=== PATIENT | female | born 1990 | race Caucasian/White ===

== ENCOUNTER 2017-03-31 07:46 | Emergency (ER) | payer BC, OTHER ==
[2017-03-31 07:57] VITALS: TEMP 97.8; BMI 37.5
[2017-03-31] MEDS ORDERED: ONDANSETRON 4 MG/2 ML VIAL IVPUSH ONE (08:01)
[2017-03-31] MEDS ORDERED: PANTOPRAZOLE SODIUM 40 MG in SODIUM CHLORIDE 100 ML IVPB ONE (08:01)
[2017-03-31] MEDS ORDERED: SODIUM CHLORIDE 1,000 ML IV STA ×2 (08:01→09:41)
[2017-03-31] MEDS ORDERED: PANTOPRAZOLE SODIUM 100 ML IVPB ONE (08:22)
[2017-03-31] MEDS ORDERED: ONDANSETRON 4 MG/2 ML VIAL ONE (08:22)
--- NOTE | 2017-03-31 08:30 | PDOC ---
History of Present Illness - General Chief Complaint: Vomiting/Diarrhea Stated Complaint: Nausea/Vomiting Time Seen by Provider: 03/31/17 08:01 History Source: Patient Exam Limitations: No Limitations - History of Present Illness Travel History: No Initial Comments: 03/31/17 08:11 26-year-old female approximately 24 weeks presents the ED with sudden onset of nausea followed by vomiting and diarrhea. Patient also now complaining of epigastric cramping generalized fatigue, and weakness. 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 Patient states has had a normal and has history of asthma with no clubbing to fever, chills, lower bowel pain, vaginal discharge, dysuria, or vaginal bleeding since onset. Timing/Duration: reports: intermittent Quality: reports: mild, cramping Abdominal Pain Onset Location: reports: epigastric Pain Radiation: reports: no radiation Activities at Onset: reports: none Aggravating Factors: improves with: None Alleviating Factors: improves with: None Past History - Travel Traveled outside of the country in the last 30 days: No Close contact w/someone who was outside of country & ill: No - Past Medical History Allergies/Adverse Reactions: Allergies Allergy/AdvReac Type Severity Reaction Status Date / Time azithromycin [From Zithromax] AdvReac Vomiting Verified 03/31/17 08:01 Home Medications: Ambulatory Orders Levofloxacin [Levaquin] 750 mg PO DAILY #7 tablet 03/07/15 Metronidazole [Flagyl -] 500 mg PO TID #21 tablet 03/07/15 Ondansetron HCl [Zofran] 4 mg PO QID PRN #16 tablet 03/07/15 Oxycodone HCl/Acetaminophen [Percocet 5/325 -] 1 tab PO Q6H PRN #12 tablet 03/07 Asthma: Yes Suicide Attempt (Hx): No - Reproductive History Is Patient Now?: Yes (#): 4 Para: 0 - Psycho/Social/Smoking Cessation Hx Anxiety: No Suicidal Ideation: No Smoking History: Never smoked Have you smoked in the past 12 months: No Information on smoking cessation initiated: No Hx Alcohol Use: No Drug/Substance Use Hx: No Substance Use Type: None Patient Lives Alone: No Lives with/in: spouse/SO Review of Systems - Review of Systems Able to Perform ROS?: Yes Constitutional: Yes: Loss of Appetite, Weakness HEENTM: No: Symptoms Reported Respiratory: No: Symptoms reported Cardiac (ROS): No: Symptoms Reported ABD/GI: Yes: Nausea, Vomiting, Indigestion : No: Symptoms Reported Musculoskeletal: No: Symptoms Reported Integumentary: No: Symptoms Reported Neurological: No: Symptoms reported *Physical Exam - Vital Signs Last Vital Signs Temp Pulse Resp BP Pulse Ox 97.8 F 83 20 121/54 98 03/31/17 07:54 03/31/17 07:54 03/31/17 07:54 03/31/17 07:54 03/31/17 07:54 - Physical Exam General Appearance: Yes: Nourished, Appropriately Dressed. No: Apparent Distress HEENT: positive: TMs Normal, Pharynx Normal. negative: Pale Conjunctivae Neck: positive: Normal Thyroid. negative: Lymphadenopathy (R), Lymphadenopathy (L) Respiratory/Chest: positive: Lungs Clear, Normal Breath Sounds. negative: Respiratory Distress, Accessory Muscle Use Cardiovascular: positive: Regular Rhythm, Regular Rate. negative: Murmur Gastrointestinal/Abdominal: positive: Normal Bowel Sounds, Soft, Tenderness ( epigastric mupper periumbilical). negative: Rebound Integumentary: positive: Normal Color, Warm, Moist Neurologic: positive: Motor Strength 5/5 (ambulatory) ED Treatment Course - LABORATORY CBC & Chemistry Diagram: 03/31/17 08:08 03/31/17 08:08 Medical Decision Making - Medical Decision Making 03/31/17 08:45 Patient here for evaluation of nausea vomiting and diarrhea after eating [place] food at 8 PM last evening. Patient states within hours started to develop nausea followed by vomiting and diarrhea. Patient is currently 24 weeks and on exam had tenderness to the epigastric and upper periumbilical region. Patient had no right upper quadrant tenderness or right lower quadrant tenderness. Patient ordered for labs including CBC, comp, lipase, mag, urinalysis, IV fluids, Zofran and Protonix. Patient also will receive an ultrasound then go upstairs for monitoring since she is 24 weeks . 03/31/17 11:13 Laboratory Tests 03/31/17 03/31/17 08:08 10:28 Lipase 76 Urine Ketones 2+ H Urine Nitrite Negative Ur Leukocyte Esterase Trace Urine WBC 1 Laboratory Tests 03/31/17 03/31/17 08:08 08:08 WBC 12.0 H Hgb 11.4 D Hct 33.9 D Plt Count 305 Neutrophils % 79.2 Sodium 139 Potassium 4.7 D Chloride 110 H Carbon Dioxide 19 L D Anion Gap 10 BUN 7 D Creatinine 0.4 L D Creat Clearance w eGFR > 60 Random Glucose 82 D Calcium 8.3 L Magnesium 2.0 AST 50 H D ALT 14 D Total Protein 6.3 L Albumin 2.6 L D Lipase 76 Patient offered apple juice and will be sent upstairs to labor and delivery for assessment. Case discussed with L&D nurse Grant and accepted patient. Patient is followed by [facility] in [facility] [place] *DC/Admit/Observation/Transfer Diagnosis at time of Disposition: Nausea, vomiting, and diarrhea, 20 or more weeks gestation of - Discharge Dispostion Condition at time of disposition: Improved - Referrals Referrals: Zaheer Sewell [Primary Care Provider] - - Patient Instructions Additional Instructions: May take Zofran as needed for nausea at home. please eat small frequent meals better bland and soft for the next 2 days and advance as tolerated.
[2017-03-31 09:05] LABS: ALBUMIN 2.6 g/dl (3.4-5.0); ANION GAP 10 (8-16); CALCIUM 8.3 mg/dL (8.5-10.1); CO2 19 mmol/L (21-32); GLUCOSE,RANDOM 82 mg/dL (74-106)
[2017-03-31 09:06] LABS: BASOPHIL 0.5 % (0-2.0); EOSINOPHIL 2.4 % (0-4.5); MCH 30.2 pg (25.7-33.7); MCHC 33.7 g/dl (32.0-36.0); MEAN CELL VOLUME 89.5 fl (80-96); MEAN PLT VOLUME 9.1 fl (7.5-11.1); NEUTROPHILS 79.2 % (42.8-82.8)
[2017-03-31 09:10] LABS: ALK PHOS 89 U/L (45-117); BILIRUBIN,TOTAL 0.4 mg/dL (0.2-1.0); CREATININE 0.4 mg/dL (0.55-1.02); SGPT/ALT 14 U/L (12-78); TOT PROT 6.3 g/dl (6.4-8.2)
--- NOTE | 2017-03-31 09:37 | PDOC ---
*Physical Exam - Vital Signs Last Vital Signs Temp Pulse Resp BP Pulse Ox 97.8 F 83 20 121/54 100 03/31/17 07:54 03/31/17 07:54 03/31/17 07:54 03/31/17 07:54 03/31/17 08:15 - Physical Exam Comments: 03/31/17 09:38 GENERAL: Awake, alert, and fully oriented, in no acute distress HEAD: No signs of trauma, normocephalic, atraumatic EYES: PERRLA, EOMI, sclera anicteric, conjunctiva clear ENT: Auricles normal inspection, hearing grossly normal, nares patent, oropharynx clear without exudates. Moist mucosa NECK: Normal ROM, supple, no lymphadenopathy, JVD, or masses LUNGS: No distress, speaks full sentences, clear to auscultation bilaterally HEART: Regular rate and rhythm, normal S1 and S2, no murmurs, rubs or gallops, peripheral pulses normal and equal bilaterally. ABDOMEN: (+) Gravid, mild epigastric tenderness. Soft, normoactive bowel sounds. No guarding, no rebound. No masses. No CVA tenderness. EXTREMITIES: Normal inspection, Normal range of motion, no edema. No clubbing or cyanosis. NEUROLOGICAL: Cranial nerves II through XII intact. Normal speech, normal gait , no focal sensorimotor deficits. Visual tripathi intact. Strength is 5/5 throughout. SKIN: Warm, Dry, normal turgor, no rashes or lesions noted. <Landon Lipscomb - Last Filed: 03/31/17 09:50> - Vital Signs Last Vital Signs Temp Pulse Resp BP Pulse Ox 97.8 F 83 20 121/54 100 03/31/17 07:54 03/31/17 07:54 03/31/17 07:54 03/31/17 07:54 03/31/17 08:15 <Wendi Raphael - Last Filed: 03/31/17 10:16> ED Treatment Course - LABORATORY CBC & Chemistry Diagram: 03/31/17 08:08 03/31/17 08:08 - ADDITIONAL ORDERS Additional order review: Laboratory Results 03/31/17 08:45 Lipase Cancelled 03/31/17 08:08 RBC 3.79 MCV 89.5 MCHC 33.7 RDW 13.0 MPV 9.1 D Neutrophils % 79.2 Lymphocytes % 12.8 D Monocytes % 5.1 Eosinophils % 2.4 D Basophils % 0.5 - Medications Given in the ED: ED Medications Discontinued Medications Generic Name Dose Route Start Last Admin Trade Name Vito PRN Reason Stop Dose Admin Pantoprazole Sodium 40 mg/ 100 mls @ 200 mls/hr 03/31/17 08:01 03/31/17 08:36 Sodium Chloride IVPB 03/31/17 08:30 200 mls/hr ONCE ONE Administration Sodium Chloride 1,000 mls @ 1,000 mls/hr 03/31/17 08:01 03/31/17 08:36 Normal Saline - IV 03/31/17 09:00 1,000 mls/hr ASDIR STA Administration Ondansetron HCl 4 mg 03/31/17 08:01 03/31/17 08:36 Zofran Injection IVPUSH 03/31/17 08:02 4 mg ONCE ONE Administration <Landon Lipscomb - Last Filed: 03/31/17 09:50> - LABORATORY CBC & Chemistry Diagram: 03/31/17 08:08 03/31/17 08:08 - ADDITIONAL ORDERS Additional order review: Laboratory Results 03/31/17 08:45 Lipase Cancelled 03/31/17 08:08 RBC 3.79 MCV 89.5 MCHC 33.7 RDW 13.0 MPV 9.1 D Neutrophils % 79.2 Lymphocytes % 12.8 D Monocytes % 5.1 Eosinophils % 2.4 D Basophils % 0.5 - Medications Given in the ED: ED Medications Discontinued Medications Generic Name Dose Route Start Last Admin Trade Name Vito PRN Reason Stop Dose Admin Pantoprazole Sodium 40 mg/ 100 mls @ 200 mls/hr 03/31/17 08:01 03/31/17 08:36 Sodium Chloride IVPB 03/31/17 08:30 200 mls/hr ONCE ONE Administration Sodium Chloride 1,000 mls @ 1,000 mls/hr 03/31/17 08:01 03/31/17 08:36 Normal Saline - IV 03/31/17 09:00 1,000 mls/hr ASDIR STA Administration Ondansetron HCl 4 mg 03/31/17 08:01 03/31/17 08:36 Zofran Injection IVPUSH 03/31/17 08:02 4 mg ONCE ONE Administration <Wendi Raphael - Last Filed: 03/31/17 10:16> Progress Note - Progress Note Progress Note: 26 year old female, 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 She presents with 2 episodes of nausea and vomit with streaks of hematemesis. She attributes her symptoms to [place] food she ate yesterday. She complains of epigastric and left upper quadrant pain, no fever or chills, no urinary complaints, no loss of fluid of vaginal bleeding. She notes that she still feels the baby moving. She denies any sick contacts. She notes that her abdominal pain as a constant burning sensation without radiation. <Landon Lipscomb - Last Filed: 03/31/17 09:50> Medical Decision Making - Medical Decision Making 03/31/17 09:39 26 year old female, who is 24 weeks , presents with nausea, vomit and epigastric pain, with minimal tenderness on exam. Differential - Viral gastritis - Dehydration - Rebecca alvarez - Food poisoning - Diabetes - UTI Plan - IV hydration - Zofran - Bedside evaluation for well being. - Reassessment <Landon Lipscomb - Last Filed: 03/31/17 09:50> - Medical Decision Making 03/31/17 10:15 bedside focused ED ultrasound transabdominal OB performed to evaluate well being findings: heart rate 147 bpm, motion noted. impression: normal FHR. <Wendi Raphael - Last Filed: 03/31/17 10:16> *DC/Admit/Observation/Transfer <Landon Lipscomb - Last Filed: 03/31/17 09:50> <Wendi Raphael - Last Filed: 03/31/17 10:16> Diagnosis at time of Disposition: - Referrals Referrals: Zaheer Sewell [Primary Care Provider] -
[2017-03-31 10:05] LABS: PLATELET COUNT 305 K/MM3 (134-434)
[2017-03-31 10:06] LABS: PLATELET ESTIMATE ADEQUATE (NORMAL)
[2017-03-31 10:13] LABS: SGOT/AST 50 U/L (15-37)
[2017-03-31 10:41] LABS: URINE APPEARANCE CLEAR; URINE BILIRUBIN NEGATIVE (NEGATIVE); URINE BLOOD NEGATIVE (NEGATIVE); URINE COLOR YELLOW; URINE GLUCOSE (UA) NEGATIVE (NEGATIVE); URINE KETONE 2+ (NEGATIVE); URINE LEUK ESTERASE TRACE (NEGATIVE); URINE NITRITE NEGATIVE (NEGATIVE); URINE PROTEIN NEGATIVE (NEGATIVE); URINE UROBILINOGEN NEGATIVE mg/dL (0.2-1.0)
[2017-03-31 10:55] LABS: URINE BACTERIA RARE /hpf (NONE SEEN); URINE MUCUS MODERATE; URINE RBC 1 /hpf (0-3); URINE WBC 1 /hpf (3-5)
[2017-03-31 12:06] VITALS: BP 123/60; PULSE 80
== END 2017-03-31 12:49 | disposition home or self-care (01) ==
LOC: JER 07:46
PROC: 3E0337Z Introduction of Electrolytic and Water Balance Substance into Peripheral Vein, Percutaneous Approach (ICD-10-PCS; principal; 2017-03-31)
PROC: 3E033GC Introduction of Other Therapeutic Substance into Peripheral Vein, Percutaneous Approach (ICD-10-PCS; 2017-03-31)
PROC: 3E033GC Introduction of Other Therapeutic Substance into Peripheral Vein, Percutaneous Approach (ICD-10-PCS; 2017-03-31)
DX: O26.892 Other specified pregnancy related conditions, second trimester (principal); R11.2 Nausea with vomiting, unspecified; Z3A.24 24 weeks gestation of pregnancy
CPT/HCPCS: 36415; 80053; 81003; 81015; 83690; 83735; 85025; 87086; 96361; 96365; 96375; 99283-25

== ENCOUNTER 2018-03-16 11:15 | Emergency (ER) | payer OTHER ==
[2018-03-16 11:22] VITALS: BP 135/72; PULSE 88; TEMP 98.9; BMI 38.9
[2018-03-16] MEDS ORDERED: LIDOCAINE HCL 1%, 10 MG/ML (50 mL VIAL) SQ ONE ×2 (12:09→12:22)
--- NOTE | 2018-03-16 12:09 | PDOC ---
History of Present Illness - General Chief Complaint: Abscess Boil Stated Complaint: ABSCESS Time Seen by Provider: 03/16/18 11:28 - History of Present Illness Initial Comments: 27-year-old female with past medical history significant for asthma presents for evaluation of a painful swollen area under her right axilla 2 days. She denies any associated symptoms besides localized pain. 03/16/18 12:03 Past History - Past Medical History Allergies/Adverse Reactions: Allergies Allergy/AdvReac Type Severity Reaction Status Date / Time azithromycin [From Zithromax] AdvReac Vomiting Verified 03/16/18 11:19 Home Medications: Ambulatory Orders Cephalexin [Keflex] 500 mg PO QID #40 capsule 03/16/18 Ibuprofen [Motrin -] 600 mg PO TID #30 tablet 03/16/18 Sulfamethoxazole/Trimethoprim [Bactrim Ds -] 1 tab PO BID #14 tablet 03/16/18 Asthma: Yes COPD: No Other medical history: DENIES. - Reproductive History (#): 4 Para: 0 - Suicide/Smoking/Psychosocial Hx Smoking History: Never smoked Have you smoked in the past 12 months: No Hx Alcohol Use: No Drug/Substance Use Hx: No Substance Use Type: None Review of Systems - Review of Systems Musculoskeletal: Yes: See HPI Hematologic/Lymphatic: Yes: See HPI All Other Systems: Reviewed and Negative *Physical Exam - Vital Signs Last Vital Signs Temp Pulse Resp BP Pulse Ox 98.9 F 88 17 135/72 100 03/16/18 11:19 03/16/18 11:19 03/16/18 11:19 03/16/18 11:19 03/16/18 11:19 - Physical Exam Comments: There is ear thymic warm tender indurated fluctuant area under the right axilla about 3 cm in length otherwise normal surrounding skin color and temperature. There are no gross sensorimotor deficits in the right upper extremity 03/16/18 12:05 Medical Decision Making - Medical Decision Making Right axilla abscess which I will I&D 03/16/18 12:05 03/16/18 12:36 The area of the abscess was sterilely prepped and aseptically injected with 20 mL of 1% lidocaine without epinephrine. After anesthesia a 1 cm incision was performed at the most fluctuant area purulence was deloculated culture was taken quarter inch iodoform packing was placed and a dry sterile dressing was placed on top of that. This was tolerated well. There were no complications. 03/16/18 12:37 *DC/Admit/Observation/Transfer Diagnosis at time of Disposition: Abscess - Discharge Dispostion Disposition: HOME Condition at time of disposition: Stable Decision to Admit order: No - Prescriptions Prescriptions: Cephalexin [Keflex] 500 mg PO QID #40 capsule Ibuprofen [Motrin -] 600 mg PO TID #30 tablet Sulfamethoxazole/Trimethoprim [Bactrim Ds -] 1 tab PO BID #14 tablet - Referrals - Patient Instructions Printed Discharge Instructions: DI for Incision and Drainage of a Skin Abscess Additional Instructions: Return to the emergency room should symptoms worsen or he develops fever chills or night sweats. Please follow-up in the ER in 2 days for packing removal and wound check. Take all the antibiotics as directed. I've also given you a prescription for a pain medication which should help your discomfort. Keep the area clean and dry for 48 hours do not remove the bandage. Do not take a shower. - Post Discharge Activity Forms/Work/School Notes: Back to Work
[2018-03-16] MEDS ORDERED: LIDOCAINE HCL 1%, 10 MG/ML (20ML VIAL) ONE (12:22)
== END 2018-03-16 13:01 | disposition home or self-care (01) ==
LOC: JERFT 11:15
PROC: 0J9D0ZZ Drainage of Right Upper Arm Subcutaneous Tissue and Fascia, Open Approach (ICD-10-PCS; principal; 2018-03-16)
PROC: 0X940ZZ Drainage of Right Axilla, Open Approach (ICD-10-PCS; 2018-03-16)
DX: L02.411 Cutaneous abscess of right axilla (principal)
CPT/HCPCS: 10060; 87070; 87186; 87205; 99282-25

== ENCOUNTER 2018-03-18 14:17 | Emergency (ER) | payer OTHER ==
[2018-03-18 14:24] VITALS: BP 122/73; PULSE 92; TEMP 98.7; BMI 38.9
--- NOTE | 2018-03-18 14:44 | PDOC ---
History of Present Illness - General Chief Complaint: Revisit,Wound Recheck Stated Complaint: ABSCESS - History of Present Illness Initial Comments: 27-year-old female presents for reevaluation after I&D of abscess under right axilla she's feeling well with some localized tenderness. She has no symptoms. 03/18/18 14:42 Past History - Past Medical History Allergies/Adverse Reactions: Allergies Allergy/AdvReac Type Severity Reaction Status Date / Time azithromycin [From Zithromax] AdvReac Vomiting Verified 03/18/18 14:24 Home Medications: Ambulatory Orders Cephalexin [Keflex] 500 mg PO QID #40 capsule 03/16/18 Ibuprofen [Motrin -] 600 mg PO TID #30 tablet 03/16/18 Sulfamethoxazole/Trimethoprim [Bactrim Ds -] 1 tab PO BID #14 tablet 03/16/18 Asthma: Yes COPD: No - Reproductive History (#): 4 Para: 0 - Suicide/Smoking/Psychosocial Hx Smoking History: Never smoked Have you smoked in the past 12 months: No Information on smoking cessation initiated: No Hx Alcohol Use: No Drug/Substance Use Hx: No Substance Use Type: None Review of Systems - Review of Systems Integumentary: Yes: See HPI All Other Systems: Reviewed and Negative *Physical Exam - Vital Signs Last Vital Signs Temp Pulse Resp BP Pulse Ox 98.7 F 92 H 18 122/73 99 03/18/18 14:21 03/18/18 14:21 03/18/18 14:21 03/18/18 14:21 03/18/18 14:21 - Physical Exam Comments: The dressing was removed from the axilla the packing was removed. There is localized ecchymosis around the area of the abscess induration is less there is no purulence or any areas individualized incision that need to be debrided. A sterile wet to dry dressing was placed. 03/18/18 14:43 Medical Decision Making - Medical Decision Making Wet-to-dry dressing changes twice daily I will see her again in 2 days for a recheck. 03/18/18 14:43 *DC/Admit/Observation/Transfer Diagnosis at time of Disposition: Abscess packing removal - Discharge Dispostion Disposition: HOME Condition at time of disposition: Stable Decision to Admit order: No - Referrals Referrals: Zaheer Sewell [Primary Care Provider] - - Patient Instructions Additional Instructions: Continue with wet-to-dry dressing changes twice daily. Return to the emergency room should he develop fever chills or night sweats. Continue taking the antibiotics as directed. I will see you in 2 days for reevaluation of the wound. - Post Discharge Activity
== END 2018-03-18 14:47 | disposition home or self-care (01) ==
LOC: JERFT 14:17
DX: Z48.817 Encounter for surgical aftercare following surgery on the skin and subcutaneous tissue (principal); Z48.01 Encounter for change or removal of surgical wound dressing
CPT/HCPCS: 99281-25

== ENCOUNTER 2018-03-22 11:08 | Emergency (ER) | payer OTHER ==
[2018-03-22 11:17] VITALS: BP 137/75; PULSE 78; TEMP 97.8; BMI 38.9
--- NOTE | 2018-03-22 11:39 | PDOC ---
History of Present Illness - General Chief Complaint: Revisit,Wound Recheck Stated Complaint: REVISIT, FOLLOW UP Time Seen by Provider: 03/22/18 11:29 History Source: Patient Exam Limitations: No Limitations - History of Present Illness Initial Comments: 03/22/18 11:36 27-year-old female presents to the emergency room for evaluation of wound to her right axilla which was drained 2 days ago. Patient was placed on Bactrim and was told to return in 48 hours. Patient denies fever chills or excessive drainage. Patient also denies any increasing swelling erythema or increased warmth. Patient with no medical history to date. Timing/Duration: other Associated Symptoms: reports: denies symptoms Past History - Past Medical History Allergies/Adverse Reactions: Allergies Allergy/AdvReac Type Severity Reaction Status Date / Time azithromycin [From Zithromax] AdvReac Vomiting Verified 03/22/18 11:14 Home Medications: Ambulatory Orders Cephalexin [Keflex] 500 mg PO QID #40 capsule 03/16/18 Ibuprofen [Motrin -] 600 mg PO TID #30 tablet 03/16/18 Sulfamethoxazole/Trimethoprim [Bactrim Ds -] 1 tab PO BID #14 tablet 03/16/18 Asthma: Yes COPD: No - Reproductive History (#): 4 Para: 0 - Suicide/Smoking/Psychosocial Hx Smoking History: Never smoked Have you smoked in the past 12 months: No Information on smoking cessation initiated: No Hx Alcohol Use: No Drug/Substance Use Hx: No Substance Use Type: None Patient Lives Alone: No Lives with/in: spouse/SO Review of Systems - Review of Systems Able to Perform ROS?: No Constitutional: No: Symptoms Reported HEENTM: No: Symptoms Reported Respiratory: No: Symptoms reported Musculoskeletal: No: Symptoms Reported Integumentary: No: Symptoms Reported Neurological: No: Symptoms reported *Physical Exam - Vital Signs Last Vital Signs Temp Pulse Resp BP Pulse Ox 97.8 F 78 18 137/75 98 03/22/18 11:15 03/22/18 11:15 03/22/18 11:15 03/22/18 11:15 03/22/18 11:15 - Physical Exam General Appearance: Yes: Nourished, Appropriately Dressed. No: Apparent Distress Integumentary: positive: Other (noted 1 cm linear wound to the right axilla. No tenderness, increased warmth, or fluctuance. noted 2 cm firm circular area below the incision) Neurologic: positive: Motor Strength 5/5 (ambulatory) Medical Decision Making - Medical Decision Making 03/22/18 11:38 Patient here for wound check. Patient had dressing changed and was told to use paper tape as she had mild irritation secondary to adhesive from tape. 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 *DC/Admit/Observation/Transfer Diagnosis at time of Disposition: Wound check, abscess - Discharge Dispostion Disposition: HOME Condition at time of disposition: Good - Referrals - Patient Instructions Printed Discharge Instructions: How to Care for a Surgical Wound Additional Instructions: Continue taking antibiotics and change dressing twice a day for the next 3 days. Please use paper tape to decrease irritation. - Post Discharge Activity
== END 2018-03-22 11:48 | disposition home or self-care (01) ==
LOC: JERFT 11:08
DX: Z48.817 Encounter for surgical aftercare following surgery on the skin and subcutaneous tissue (principal); L02.411 Cutaneous abscess of right axilla
CPT/HCPCS: 99281-25

== ENCOUNTER 2021-05-25 02:40 | Emergency (ER) | payer BC, OTHER ==
[2021-05-25] MEDS ORDERED: FAMOTIDINE 20 MG/50 ML IVPB 20 MG/50 ML MG IVPB ONE ×2 (02:56→03:18)
[2021-05-25] MEDS ORDERED: SODIUM CHLORIDE 1,000 ML IV STA (02:56)
[2021-05-25 02:57] VITALS: BMI 32.9
[2021-05-25] MEDS ORDERED: ACETAMINOPHEN 1000 MG/100 ML VIAL (NON FORMULARY) IVPB ONE (03:36)
[2021-05-25 03:54] LABS: HEMATOCRIT 38.8 % (32.4-45.2); HEMOGLOBIN 13.5 GM/dL (10.7-15.3); MCH 31.1 pg (25.7-33.7); MCHC 34.8 g/dl (32.0-36.0); MEAN CELL VOLUME 89.3 fl (80-96); MEAN PLT VOLUME 7.9 fl (7.5-11.1); PLATELET COUNT 363 10^3/uL (134-434); RBC 4.34 M/mm3 (3.60-5.2); RDW 12.9 % (11.6-15.6); WHITE BLOOD COUNT 10.5 K/mm3 (4.0-10.0)
[2021-05-25 03:57] LABS: PH,URINE 5.5 (5.0-8.0); URINE APPEARANCE CLOUDY; URINE BILIRUBIN NEGATIVE (NEGATIVE); URINE COLOR YELLOW; URINE GLUCOSE (UA) NEGATIVE (NEGATIVE); URINE KETONE TRACE (NEGATIVE); URINE LEUK ESTERASE NEGATIVE (NEGATIVE); URINE NITRITE NEGATIVE (NEGATIVE); URINE PROTEIN NEGATIVE (NEGATIVE); URINE UROBILINOGEN 0.2 mg/dL (0.2-1.0)
[2021-05-25] MEDS ORDERED: ACETAMINOPHEN INJECTION 100 ML IVPB ONE (04:00)
[2021-05-25 04:14] LABS: CALCIUM 8.7 mg/dL (8.5-10.1)
[2021-05-25 04:15] LABS: ALBUMIN 3.5 g/dl (3.4-5.0); BLOOD UREA NITROGEN 11.7 mg/dL (7-18)
[2021-05-25 04:18] LABS: CREATININE 0.7 mg/dL (0.55-1.3)
[2021-05-25 04:20] LABS: BILIRUBIN,TOTAL 0.4 mg/dL (0.2-1); TOT PROT 7.1 g/dl (6.4-8.2)
[2021-05-25 08:55] VITALS: BP 128/87; PULSE 83; TEMP 98.8
== END 2021-05-25 09:05 | disposition home or self-care (01) ==
LOC: JER 02:40
PROC: 3E033NZ Introduction of Analgesics, Hypnotics, Sedatives into Peripheral Vein, Percutaneous Approach (ICD-10-PCS; principal; 2021-05-25)
PROC: 3E033GC Introduction of Other Therapeutic Substance into Peripheral Vein, Percutaneous Approach (ICD-10-PCS; 2021-05-25)
PROC: 3E0337Z Introduction of Electrolytic and Water Balance Substance into Peripheral Vein, Percutaneous Approach (ICD-10-PCS; 2021-05-25)
DX: R11.2 Nausea with vomiting, unspecified (principal); Z98.84 Bariatric surgery status
CPT/HCPCS: 36415; 74177-TC; 80053; 81003; 84703; 85027; 87086; 93005; 93010; 99285-25; J0131

== ENCOUNTER 2021-06-15 02:00 | Emergency (ER) | payer BC ==
[2021-06-15] MEDS ORDERED: ACETAMINOPHEN INJECTION 100 ML IVPB ONE (02:03)
[2021-06-15] MEDS ORDERED: ACETAMINOPHEN 1000 MG/100 ML VIAL (NON FORMULARY) IVPB ONE (02:07)
[2021-06-15 02:18] VITALS: BMI 33.8
[2021-06-15 02:33] LABS: BASO % 1.1 % (0-2.0); EOS % 3.8 % (0-4.5); HEMATOCRIT 40.5 % (32.4-45.2); HEMOGLOBIN 13.7 GM/dL (10.7-15.3); MCH 30.5 pg (25.7-33.7); MCHC 33.8 g/dl (32.0-36.0); MEAN CELL VOLUME 90.4 fl (80-96); MEAN PLT VOLUME 7.7 fl (7.5-11.1); MONO % 7.6 % (3.8-10.2); NEUT % 55.5 % (42.8-82.8); PLATELET COUNT 479 10^3/uL (134-434); RBC 4.48 M/mm3 (3.60-5.2); RDW 12.7 % (11.6-15.6); WHITE BLOOD COUNT 9.1 K/mm3 (4.0-10.0)
[2021-06-15 02:47] LABS: INR 1.01 (0.83-1.09); PROTHROMBIN TIME (PATIENT) 12.2 SEC (9.7-13.0)
[2021-06-15 02:50] LABS: ACTIVATED PTT 33.9 SECONDS (25.2-36.5)
[2021-06-15 02:57] LABS: CHLORIDE 106 mmol/L (98-107); SODIUM 139 mmol/L (136-145)
[2021-06-15 03:00] LABS: ANION GAP 7 MMOL/L (8-16); CALCIUM 9.3 mg/dL (8.5-10.1); CO2 26 mmol/L (21-32); GLUCOSE,RANDOM 100 mg/dL (74-106)
[2021-06-15 03:03] LABS: SGOT/AST 18 U/L (15-37); SGPT/ALT 17 U/L (13-61)
[2021-06-15 03:04] LABS: CREATININE 0.7 mg/dL (0.55-1.3)
[2021-06-15 03:05] LABS: BILIRUBIN,TOTAL 0.8 mg/dL (0.2-1); TOT PROT 8.2 g/dl (6.4-8.2)
[2021-06-15 03:06] LABS: ALK PHOS 110 U/L (45-117)
[2021-06-15] MEDS ORDERED: morphine CARPU-JECT 2 MG/1 ML DISP.SYRIN IVPUSH ONE (03:15)
[2021-06-15] MEDS ORDERED: KETOROLAC TROMETHAMINE 15 MG/ML VIAL IVPUSH ONE (03:19)
[2021-06-15 03:20] LABS: PH,URINE 5.5 (5.0-8.0); URINE APPEARANCE CLEAR; URINE BILIRUBIN NEGATIVE (NEGATIVE); URINE COLOR YELLOW; URINE GLUCOSE (UA) NEGATIVE (NEGATIVE); URINE KETONE 2+ (NEGATIVE); URINE LEUK ESTERASE NEGATIVE (NEGATIVE); URINE NITRITE NEGATIVE (NEGATIVE); URINE PROTEIN NEGATIVE (NEGATIVE)
[2021-06-15] MEDS ORDERED: LIDOCAINE 5% TOPICAL PATCH TP ONE (03:20)
[2021-06-15] MEDS ORDERED: LIDOCAINE 5% TOPICAL PATCH ONE (03:25)
[2021-06-15] MEDS ORDERED: KETOROLAC TROMETHAMINE 15 MG/ML VIAL ONE (03:25)
[2021-06-15 03:26] LABS: EPI CELLS 11 /uL (0-25.1); HYALINE CASTS 2 /uL (0-3.1); URINE BACTERIA 450 /uL (0-1359); URINE RBC 4 /uL (0-23.9); URINE WBC 9 /uL (0-25.8)
[2021-06-15] MEDS ORDERED: SODIUM CHLORIDE 0.9% 500 ML INFUS.BAG IV ONE (03:30)
[2021-06-15 07:16] VITALS: BP 100/71; PULSE 62; TEMP 97.6
[2021-06-15] MEDS ORDERED: LIDOCAINE PATCH REMOVAL MC SCH (22:00)
== END 2021-06-15 07:22 | disposition home or self-care (01) ==
LOC: JER 02:00
PROC: 3E033NZ Introduction of Analgesics, Hypnotics, Sedatives into Peripheral Vein, Percutaneous Approach (ICD-10-PCS; principal; 2021-06-15)
PROC: 3E033GC Introduction of Other Therapeutic Substance into Peripheral Vein, Percutaneous Approach (ICD-10-PCS; 2021-06-15)
PROC: 3E0333Z Introduction of Anti-inflammatory into Peripheral Vein, Percutaneous Approach (ICD-10-PCS; 2021-06-15)
DX: R10.32 Left lower quadrant pain (principal)
CPT/HCPCS: 36415; 74177-TC; 76830-TC; 80053; 81003; 83605; 84702; 84703; 85025; 85610; 85730; 86850; 86900; 86901; 87086; 99285-25; C9803; J0131; U0003; U0005